=== PATIENT | male | born 1970 | race Caucasian/White ===

== ENCOUNTER 2019-12-28 19:25 | Emergency (ER) | payer OTHER ==
[~2019-12-28] VITALS: Ht 167.6 cm; Wt 103.9 kg
[2019-12-28] MEDS ORDERED: ATOR20 PO (19:37)
[2019-12-28] MEDS ORDERED: TAMSULOSIN HCL0.4 M1 PO (19:37)
[2019-12-28] MEDS ORDERED: TRAZ50 PO ×2 (19:38→21:21)
[2019-12-28] MEDS ORDERED: METFORMIN HCL500 M2 PO (19:38)
[2019-12-28] MEDS ORDERED: PROZAC40 MG PO (19:38)
[2019-12-28] MEDS ORDERED: CYCL10 PO (19:38)
[2019-12-28] MEDS ORDERED: FINA5 PO (19:39)
[2019-12-28 20:41] LABS: Alanine Aminotransfer (ALT/SGP 68 U/L (12-78); Albumin, Blood 3.7 g/dL (3.4-5.0); Alk Phos 146 U/L (50-136); Anion Gap 7 mmol/L (6-16); Aspartate Aminotrans (AST/SGOT 47 U/L (12-37); Bilirubin, Total 1.6 mg/dL (0.1-1.0); Blood Urea Nitrogen 12 mg/dL (8-24); Bun/Creatinine Ratio 17.7 (12.0-20.0); CO2, Blood 25 mmol/L (21-32); Calcium, Blood 9.5 mg/dL (8.5-10.1); Chloride, Blood 101 mmol/L (98-108); Creatinine, Blood 0.68 mg/dL (0.60-1.20); Globulin, Blood 3.8 g/dL (2.2-4.0); Glomerular Filtration Rate >60 (60-); Glucose, Blood 401 mg/dL (70-99); Sodium, Blood 133 mmol/L (136-145); Total Protein, Blood 7.5 g/dL (6.4-8.2); Troponin I <0.015 ng/mL (0.000-0.040)
[2019-12-28] MEDS ORDERED: METF500 PO (21:21)
[2019-12-28] MEDS ORDERED: LOSA50 PO (21:21)
== END 2019-12-28 21:47 | disposition home or self-care (01) ==
LOC: ER 19:25
PROVIDERS: Emergency Medicine
DX: I10 Essential (primary) hypertension (principal); R73.9 Hyperglycemia, unspecified; Z88.6 Allergy status to analgesic agent; E66.9 Obesity, unspecified; F17.220 Nicotine dependence, chewing tobacco, uncomplicated; Z79.899 Other long term (current) drug therapy; Z68.37 Body mass index [BMI] 37.0-37.9, adult
CPT/HCPCS: 36415; 71046; 80053; 84484; 93005; 93010; 96374; 99284-25; A9270-GY; J0360

== ENCOUNTER 2020-06-17 13:54 | Emergency (ER) | payer OTHER ==
[~2020-06-17] VITALS: Ht 167.6 cm; Wt 106.6 kg
[~2020-06-17 13:54] MED LIST: ATOR20 PO; CYCL10 PO; FINA5 PO; LOSA50 PO; METF500 PO; METFORMIN HCL500 M2 PO; PROZAC40 MG PO; TAMSULOSIN HCL0.4 M1 PO; TRAZ50 PO
[2020-06-17] MEDS ORDERED: Prednisone50 MG PO (17:29)
[2020-06-17] MEDS ORDERED: VALTREX1000 M1 PO (17:29)
[2020-06-17] MEDS ORDERED: ARTIFICIAL TEAR15 M2 RIGHTEYE (17:29)
== END 2020-06-17 18:03 | disposition home or self-care (01) ==
LOC: ER 13:54
DX: G51.0 Bell's palsy (principal); Z88.5 Allergy status to narcotic agent; Z79.899 Other long term (current) drug therapy; Z79.84 Long term (current) use of oral hypoglycemic drugs; I10 Essential (primary) hypertension; F17.290 Nicotine dependence, other tobacco product, uncomplicated
CPT/HCPCS: 36415; 99283; J7512